=== PATIENT | male | born 1990 | race African-American/Black ===

== ENCOUNTER 2018-06-07 09:37 | Emergency (ER) | payer MEDICAID, OTHER ==
[~2018-06-07] VITALS: Ht 170.2 cm; Wt 63.5 kg
[2018-06-07 09:44] VITALS: BP 134/77
[2018-06-07 11:28] LABS: Albumin 3.9 g/dL (3.4-5.0); BUN/Creatinine Ratio 8.9; Bilirubin, Total 0.4 mg/dL (0.2-1.0); Calcium 8.6 mg/dL (8.5-10.1); Magnesium 2.4 mg/dL (1.6-2.6); Potassium 3.6 mmol/L (3.5-5.1); Total Protein 7.6 g/dL (6.4-8.2)
[2018-06-07 11:40] LABS: Basophils # (auto) 0 uL; Basophils % (auto) 0.4 % (0.0-2.0); Eosinophils # (auto) 0.1 uL; Eosinophils % (auto) 0.8 % (0.0-7.0); Hematocrit 52.3 % (41.0-53.0); Hemoglobin 18.7 g/dL (13.5-17.5); Lymphocytes # (auto) 1.3 uL; Lymphocytes % (auto) 17.3 % (10.0-50.0); Mean Corpuscular Hemoglobin 33.3 pg (28.0-32.0); Mean Corpuscular Hgb Conc. 35.8 g/dL (32.0-36.0); Monocytes # (auto) 0.4 uL; Monocytes % (auto) 5.3 % (0.0-12.0); Neutrophils # (auto) 5.8 uL; Neutrophils % (auto) 76.2 % (37.0-80.0); Nucleated Red Blood Cells % 0.1 %; Platelet Count (auto) 263 10^3/uL (140-450); Red Blood Cells 5.63 10^6/uL (4.5-5.90); Red Cell Distribution Width 12.6 % (11.8-14.3); White Blood Cell 7.6 10^3/uL (4.4-10.8)
== END 2018-06-07 12:36 | disposition left against medical advice (07) ==
LOC: ER 09:37 → EDBD 09:37 → ER 12:05
DX: F14.10 Cocaine abuse, uncomplicated (principal); F17.210 Nicotine dependence, cigarettes, uncomplicated
CPT/HCPCS: 36415; 80053; 83735; 84484; 85025; 85652; 93005